=== PATIENT | female | born 1950 | race Caucasian/White ===

== ENCOUNTER 2016-05-19 08:03 | Inpatient (IN) | payer MEDICARE, MEDICAID ==
[2016-05-19 10:56] VITALS: BMI 17.1
--- NOTE | 2016-05-19 13:07 | History and Physical Report ---
History of Present Illnes - History of Present Illness Reason for Visit: gait disturbance History of Present Illness: This is a 65 year old female with an established history of COPD and is chronically oxygen dependent, who presents to the ER with increased c/o shortness of breath/wheezing and failed treatment with nebulizers. She has a productive cough, fever and was noted to have an elevated white count. Patient was felt to be having a bronchitis/pneumonia despite no clear infiltrate on her CXR. Patient was admitted to acute care and started on IV steroids and antibiotics, HFN treatments. Patient developed some weakness due to her illness and it was felt that she would benefit from some PT and OT prior to going home. Was admitted to SNF. - Past Medical History Cardiac: CAD, Hyperlipidemia Pulmonary: COPD ALIGNMENT SPECIALIST: Other (RLS) Gastrointestinal: GERD. denies: Constipation, Inflam bowel disease Heme/Onc: Anemia NOS Psych: Anxiety Musculoskeletal: Chronic low back pain (mid thoracic pain) - Past Surgical History Past Surgical History: Hysterectomy, Other (elbow reconstruction) - Past Family History Mother Family History: Cancer (lung), (84yo) Father Family History: (65yo, complications of alcoholism) Brother 1 Family History: Cancer (lung cancer), (41yo; AIDs) Brother 2 Family History: (41yo AIDs) Sister 1 Family History: Cancer (lung cancer), (47yo) - Past Social History Smoke: # pack years (68), <1 pack per day (68 pk year hx) Occupation: disabled Alcohol: None Drugs: None Lives: With Family (daughter) Domestic Violence: Negative - Health Maintenance Health Maintenance: Cholesterol, Influenza Vaccine, Pneumococcal Vaccine Influenza Vaccine: Current for this Influenza Season Pneumonia Vaccine: Yes Resuscitation Status: Resusciation Status Resuscitation Status Full Code - Unable to Obtain History Unable to Obtain: No Review of Systems - Review of Systems Constitutional: Fever, Chills, Weakness. negative: Sweats Eyes: negative: pain, vision change ENT: Nose Congestion (mild clear). negative: Ear Pain, Ear Discharge, Nose Pain , Nose Discharge, Mouth Pain, Mouth Swelling, Throat Pain Respiratory: Cough (productive of some green phlegm), Shortness of Breath, SOB with Excertion. negative: Hemoptysis, Pleuritic Pain Cardiovascular: Palpitations (with HFN ). negative: Chest Pain, Orthopnea, Paroxysmal Noc. Dyspnea, Light Headedness Gastrointestinal: Constipation. negative: Nausea, Vomiting, Abdominal Pain, Diarrhea, Melena, Hematochezia Genitourinary: negative: Dysuria, Frequency Musculoskeletal: negative: Back Pain Skin: negative: Rash Neurological: Weakness. negative: Numbness, Incoordination, Change in Speech - Medications/Allergies Allergies/Adverse Reactions: Allergies Allergy/AdvReac Type Severity Reaction Status Date / Time No Known Allergies Allergy Verified 05/16/16 20:43 Current Inpatient Medications: Current Inpatient Medications Albuterol/Ipratropium (Duoneb) 3 ml NEB Q4 PRN PRN Reason: Wheezing Alprazolam (Xanax) 0.5 mg PO Q4 PRN PRN Reason: Anxiety Amitriptyline HCl (Elavil) 50 mg PO HS [facility] Aspirin (Ecotrin) 81 mg PO DAILY [facility] Azithromycin (Zithromax) 250 mg PO DAILY [facility] Stop: 05/24/16 08:59 Fluoxetine HCl (Prozac) 10 mg PO BID [facility] Levofloxacin (Levaquin) 500 mg PO D [facility] Montelukast Sodium (Singulair) 10 mg PO DAILY [facility] Pantoprazole Sodium (Protonix) 40 mg PO 0700 [facility] Prednisone (Deltasone) 20 mg PO BID [facility] Stop: 05/22/16 07:00 Prednisone (Deltasone) 10 mg PO BID [facility] Stop: 05/24/16 07:59 Ropinirole HCl (Requip) 2 mg PO TID [facility] Fluticasone/Salmeterol (Advair 250-50 Diskus) each IH BID [facility] Exam - Exam Vital Signs: Vital Signs (72 hours) 05/16/16 05/19/16 05/19/16 22:22 09:46 10:14 Temperature 97.8 F Pulse Rate [ 83 Right] Respiratory 20 Rate Blood Pressure 134/67 Blood Pressure 128/73 [Left Arm] Blood Pressure 134/67 134/67 [Right Arm] O2 Sat by Pulse 97 Oximetry General: Alert, Oriented to Person, Oriented to Place, Oriented to Time, Cooperative, Mild distress HEENT: Atraumatic, PERRLA, Mouth Mucous membr. moist/[place], Nose Mucous membr. moist/[place], Hearing Grossly Normal Neck: Normal Range of Motion, Lymphadenopathy. No: Stridor, Rigidity Carotids: WNL Thyroid: WNL Lungs: Speaks full Sentences, Respiratory Distress, Wheezes (mild), Rhonchi ( few scattered), Prolonged Expiration (mild). No: Rales Cardiovascular: Regular rate, Normal S1, Normal S2, No murmurs Abdomen: Normal bowel sounds, Soft, No tenderness, No masses Integumentary: Normal, [place], Warm, Dry Extremities: No clubbing, No cyanosis, No edema, Normal pulses Neurological: Normal gait, Normal speech, Strength Equal Bilat, Normal tone, Sensation intact, Cranial nerves 3-12 NL, Reflexes 2+ Psych/Mental Status: Mental status NL, Mood NL, Appropriate Affect, Intact Judgment Assessment/Plan - Assessment/Plan (1) Gait disturbance Status: Acute Current Visit: No Assessment: Will start PT and OT. (2) Acute exacerbation of chronic obstructive pulmonary disease (COPD) Status: Acute Current Visit: No Plan: Will start po tapering steroid dose. Continue with HFN treatments. (3) Bronchitis Status: Acute Current Visit: Yes Assessment: Will continue with antibiotics VTE Assessment - RISK FACTOR SCORE VTE RISK FACTOR SCORES: AGE OVER 60 YEARS - RISK VTE MODERATE RISK: SCORE OF 2 (RISK PROXIMAL DVT 2-4%) PROPHYAXIS NEEDED
[2016-05-19] MEDS: IPRATROPIUM/ALBUTEROL SULFATE 3 ML AMPUL.NEB NEB PRN (13:18)
[2016-05-19] MEDS: ALPRAZOLAM 0.5 MG TABLET PO PRN (17:28)
[2016-05-19] MEDS ORDERED: PHARMACY KEY 1 EACH EACH MC ONE (19:28)
[2016-05-19] MEDS: AMITRIPTYLINE HCL 25 MG TABLET PO SCH (19:42)
[2016-05-19] MEDS: predniSONE 20 MG TABLET PO SCH (19:42)
[2016-05-19] MEDS: FLUoxetine HCL 10 MG CAPSULE PO SCH (19:42)
[2016-05-19] MEDS: rOPINIRole HCL 1 MG TABLET PO SCH (19:42)
[2016-05-19] MEDS: FLUTICASONE/SALMETEROL 250-50 INHALER IH SCH (19:43)
[2016-05-19] MEDS ORDERED: PANTOPRAZOLE SODIUM 40 MG TABLET ONE (20:02)
[2016-05-19] MEDS ORDERED: AZITHROMYCIN 250 MG TABLET PO ONE (20:04)
[2016-05-19] MEDS ORDERED: MONTELUKAST SODIUM 10 MG TABLET PO ONE (20:04)
[2016-05-19] MEDS ORDERED: ASPIRIN EC 81 MG TABLET.DR ONE (20:04)
[2016-05-20] MEDS: IPRATROPIUM/ALBUTEROL SULFATE 3 ML AMPUL.NEB NEB PRN ×2 (00:30→17:16)
[2016-05-20] MEDS: PANTOPRAZOLE SODIUM 40 MG TABLET PO SCH (07:21)
[2016-05-20] MEDS: FLUTICASONE/SALMETEROL 250-50 INHALER IH SCH ×2 (08:37→20:00)
[2016-05-20] MEDS: AZITHROMYCIN 250 MG TABLET PO SCH (08:38)
[2016-05-20] MEDS: MONTELUKAST SODIUM 10 MG TABLET PO SCH (08:38)
[2016-05-20] MEDS: predniSONE 20 MG TABLET PO SCH ×2 (08:38→20:01)
[2016-05-20] MEDS: ASPIRIN EC 81 MG TABLET.DR PO SCH (08:38)
[2016-05-20] MEDS: rOPINIRole HCL 1 MG TABLET PO SCH ×3 (08:38→17:47)
[2016-05-20] MEDS: FLUoxetine HCL 10 MG CAPSULE PO SCH ×2 (08:38→20:04)
[2016-05-20] MEDS: ALPRAZOLAM 0.5 MG TABLET PO PRN ×2 (08:43→17:49)
[2016-05-20] MEDS: oxyCODONE HCL 5 MG TABLET PO PRN ×2 (14:00→20:05)
[2016-05-20] MEDS: AMITRIPTYLINE HCL 25 MG TABLET PO SCH (20:01)
[2016-05-21] MEDS: oxyCODONE HCL 5 MG TABLET PO PRN ×3 (04:54→20:45)
[2016-05-21] MEDS: ALPRAZOLAM 0.5 MG TABLET PO PRN ×3 (04:54→20:45)
[2016-05-21] MEDS: IPRATROPIUM/ALBUTEROL SULFATE 3 ML AMPUL.NEB NEB PRN ×2 (05:04→13:33)
[2016-05-21] MEDS: PANTOPRAZOLE SODIUM 40 MG TABLET PO SCH (06:31)
[2016-05-21] MEDS: rOPINIRole HCL 1 MG TABLET PO SCH ×3 (09:16→17:28)
[2016-05-21] MEDS: ASPIRIN EC 81 MG TABLET.DR PO SCH (09:16)
[2016-05-21] MEDS: FLUTICASONE/SALMETEROL 250-50 INHALER IH SCH ×2 (09:16→20:45)
[2016-05-21] MEDS: predniSONE 20 MG TABLET PO SCH ×2 (09:17→20:46)
[2016-05-21] MEDS: MONTELUKAST SODIUM 10 MG TABLET PO SCH (09:17)
[2016-05-21] MEDS: FLUoxetine HCL 10 MG CAPSULE PO SCH ×2 (09:18→20:45)
[2016-05-21] MEDS: AZITHROMYCIN 250 MG TABLET PO SCH (09:18)
[2016-05-21] MEDS: AMITRIPTYLINE HCL 25 MG TABLET PO SCH (20:45)
[2016-05-22] MEDS: oxyCODONE HCL 5 MG TABLET PO PRN ×4 (00:33→20:00)
[2016-05-22] MEDS: ALPRAZOLAM 0.5 MG TABLET PO PRN ×3 (05:06→22:56)
[2016-05-22] MEDS: PANTOPRAZOLE SODIUM 40 MG TABLET PO SCH (05:14)
[2016-05-22] MEDS: IPRATROPIUM/ALBUTEROL SULFATE 3 ML AMPUL.NEB NEB PRN ×2 (05:33→16:10)
[2016-05-22] MEDS: rOPINIRole HCL 1 MG TABLET PO SCH ×3 (09:22→17:56)
[2016-05-22] MEDS: FLUTICASONE/SALMETEROL 250-50 INHALER IH SCH ×2 (09:22→20:18)
[2016-05-22] MEDS: MONTELUKAST SODIUM 10 MG TABLET PO SCH (09:23)
[2016-05-22] MEDS: ASPIRIN EC 81 MG TABLET.DR PO SCH (09:23)
[2016-05-22] MEDS: AZITHROMYCIN 250 MG TABLET PO SCH (09:23)
[2016-05-22] MEDS: FLUoxetine HCL 10 MG CAPSULE PO SCH ×2 (09:26→20:18)
[2016-05-22] MEDS: predniSONE 10 MG TABLET PO SCH ×3 (09:39→20:18)
[2016-05-22] MEDS: AMITRIPTYLINE HCL 25 MG TABLET PO SCH (20:19)
[2016-05-23] MEDS: oxyCODONE HCL 5 MG TABLET PO PRN ×3 (05:39→20:05)
[2016-05-23] MEDS: ALPRAZOLAM 0.5 MG TABLET PO PRN ×2 (05:39→20:05)
[2016-05-23] MEDS: PANTOPRAZOLE SODIUM 40 MG TABLET PO SCH (05:39)
[2016-05-23] MEDS: FLUTICASONE/SALMETEROL 250-50 INHALER IH SCH ×2 (08:07→20:04)
[2016-05-23] MEDS: predniSONE 10 MG TABLET PO SCH ×2 (08:08→20:04)
[2016-05-23] MEDS: FLUoxetine HCL 10 MG CAPSULE PO SCH ×2 (08:09→20:04)
[2016-05-23] MEDS: MONTELUKAST SODIUM 10 MG TABLET PO SCH (08:09)
[2016-05-23] MEDS: ASPIRIN EC 81 MG TABLET.DR PO SCH (08:09)
[2016-05-23] MEDS: rOPINIRole HCL 1 MG TABLET PO SCH ×3 (08:10→17:55)
[2016-05-23] MEDS: AZITHROMYCIN 250 MG TABLET PO SCH (08:10)
[2016-05-23] MEDS: IPRATROPIUM/ALBUTEROL SULFATE 3 ML AMPUL.NEB NEB PRN ×2 (15:27→20:28)
[2016-05-23] MEDS: AMITRIPTYLINE HCL 25 MG TABLET PO SCH (20:04)
[2016-05-24] MEDS: ALPRAZOLAM 0.5 MG TABLET PO PRN ×3 (04:12→19:59)
[2016-05-24] MEDS: oxyCODONE HCL 5 MG TABLET PO PRN ×3 (04:12→20:00)
[2016-05-24] MEDS: PANTOPRAZOLE SODIUM 40 MG TABLET PO SCH (06:00)
[2016-05-24 07:30] LABS: eGFR (African) > 60; eGFR (Non-African) > 60
[2016-05-24] MEDS ORDERED: LEVOFLOXACIN 500 MG TABLET PO ONE (08:30)
[2016-05-24] MEDS: FLUTICASONE/SALMETEROL 250-50 INHALER IH SCH ×2 (08:35→19:59)
[2016-05-24] MEDS: rOPINIRole HCL 1 MG TABLET PO SCH ×3 (08:35→17:42)
[2016-05-24] MEDS: predniSONE 10 MG TABLET PO SCH ×3 (08:35→20:00)
[2016-05-24] MEDS: MONTELUKAST SODIUM 10 MG TABLET PO SCH (08:35)
[2016-05-24] MEDS: ASPIRIN EC 81 MG TABLET.DR PO SCH (08:35)
[2016-05-24] MEDS: FLUoxetine HCL 10 MG CAPSULE PO SCH ×2 (08:35→20:01)
[2016-05-24] MEDS: AZITHROMYCIN 250 MG TABLET PO SCH (08:35)
[2016-05-24] MEDS: IPRATROPIUM/ALBUTEROL SULFATE 3 ML AMPUL.NEB NEB PRN ×2 (10:41→16:17)
[2016-05-24] MEDS: AMITRIPTYLINE HCL 25 MG TABLET PO SCH (19:59)
[2016-05-25] MEDS: IPRATROPIUM/ALBUTEROL SULFATE 3 ML AMPUL.NEB NEB PRN ×3 (01:11→15:29)
[2016-05-25] MEDS: ALPRAZOLAM 0.5 MG TABLET PO PRN ×2 (05:03→08:25)
[2016-05-25] MEDS: oxyCODONE HCL 5 MG TABLET PO PRN ×2 (05:03→10:35)
[2016-05-25] MEDS: PANTOPRAZOLE SODIUM 40 MG TABLET PO SCH (06:15)
[2016-05-25 07:19] LABS: BASOPHILS % 0.1 (0.0-1.5); MEAN CORPUSCULAR HEMOGLOBIN 30.9 pg (28.0-34.0); MONOCYTES # 0.7 # k/uL (0.0-0.9); MONOCYTES % 4.8 % (0.0-11.0); NEUTROPHILS # 12.1 # k/uL (1.4-7.7)
[2016-05-25] MEDS: FLUoxetine HCL 10 MG CAPSULE PO SCH ×2 (08:25→20:52)
[2016-05-25] MEDS: ASPIRIN EC 81 MG TABLET.DR PO SCH (08:25)
[2016-05-25] MEDS: FLUTICASONE/SALMETEROL 250-50 INHALER IH SCH ×2 (08:25→20:51)
[2016-05-25] MEDS: rOPINIRole HCL 1 MG TABLET PO SCH ×3 (08:25→16:47)
[2016-05-25] MEDS: predniSONE 10 MG TABLET PO SCH ×2 (08:26→20:52)
[2016-05-25] MEDS: LEVOFLOXACIN 500 MG TABLET PO SCH (08:26)
[2016-05-25] MEDS: MONTELUKAST SODIUM 10 MG TABLET PO SCH (08:26)
[2016-05-25] MEDS ORDERED: ENOXAPARIN SODIUM 100 MG/ML DISP.SYRIN SQ ONE (08:56)
[2016-05-25] MEDS ORDERED: ENOXAPARIN SODIUM 100 MG/ML DISP.SYRIN SQ SCH (09:00)
--- NOTE | 2016-05-25 10:53 | Inpatient Progress Note ---
Subjective - Required Recertification Statement I anticipate X number of days because-include discharge plan: 7 days - Review of Systems Subjective: Patient states that she has developed some left anterior chest pain which is pleuritic in nature. Patient has had a mild nonproductive cough. Patient denies any fever or chills. Pain is constant, worse with inspiration. Denies any rash. COPD is stable to slightly worse. General: Denies: Chills, Fatigue Pulmonary: Dyspnea, Pleuritic Chest Pain Cardiovascular: Chest Pain (left anterior), Palpitations Gastrointestinal: Denies: Nausea, Vomiting, Abdominal Pain, Diarrhea Genitourinary: Denies: Dysuria, Frequency, Incontinence Neurological: Denies: Weakness, Incoordination Objective - Exam Vitals and I&O: Vital Signs Temp 102.5 F H 05/25/16 09:44 Pulse 135 H 05/25/16 09:44 Resp 24 05/25/16 09:44 BP 100/62 05/25/16 09:44 Pulse Ox 98 05/25/16 09:44 Intake & Output 05/24/16 05/24/16 05/25/16 11:59 23:59 11:59 Intake Total 250 740 120 Balance 250 740 120 Weight 48.081 kg Intake: Oral 250 740 120 Other: Voiding Method Toilet Toilet Toilet General: Alert, Oriented to Person, Oriented to Place, Oriented to Time, Cooperative, Moderate distress HEENT: Atraumatic Neck: Supple, No JVD Lungs: Normal air movement, Speaks full Sentences, Respiratory Distress, Wheezes (bilateral), Rales (course), Rhonchi (course). No: Accessory Muscle Use Cardiovascular: Regular rate, Normal S1, Normal S2, No murmurs, Tachycardia Abdomen: Normal bowel sounds, Soft, No tenderness, No hepatospenomegaly - Results Results: Laboratory Results WBC 14.10 K/ul (4.00-12.00) H 05/25/16 06:35 RBC 3.67 M/ul (3.90-5.20) L 05/25/16 06:35 Hgb 11.3 g/dL (12.0-16.0) L 05/25/16 06:35 Hct 36.6 % (34.5-46.5) 05/25/16 06:35 MCV 99.7 fl (80.0-100.0) 05/25/16 06:35 MCH 30.9 pg (28.0-34.0) 05/25/16 06:35 MCHC 31.0 g/dL (30.0-36.0) 05/25/16 06:35 RDW 12.8 % (11.3-14.3) 05/25/16 06:35 Plt Count 231 K/mm3 (130-400) 05/25/16 06:35 Neut % (Auto) 86.0 % (39.0-79.0) H 05/25/16 06:35 Lymph % (Auto) 7.2 % (16.0-50.0) L 05/25/16 06:35 [place] % (Auto) 4.8 % (0.0-11.0) 05/25/16 06:35 Eos % (Auto) 1.0 % (0.0-6.8) 05/25/16 06:35 Baso % (Auto) 0.1 (0.0-1.5) 05/25/16 06:35 Neut # 12.1 # k/uL (1.4-7.7) H 05/25/16 06:35 Lymph # 1.0 # k/uL (0.6-4.0) 05/25/16 06:35 [place] # 0.7 # k/uL (0.0-0.9) 05/25/16 06:35 Eos # 0.2 # k/uL (0.0-0.6) 05/25/16 06:35 Baso # 0.0 # k/uL (0.0-0.5) 05/25/16 06:35 Reactive Lymphs % 0.9 % (0.0-5.0) 05/25/16 06:35 Reactive Lymphs # 0.1 # k/uL (0.0-0.8) 05/25/16 06:35 Sodium 140 mmol/L (136-145) 05/24/16 06:55 Potassium 4.5 mmol/L (3.5-5.0) 05/24/16 06:55 Chloride 99 mmol/L (98-110) 05/24/16 06:55 Carbon Dioxide > 40 mmol/L (20-32) H 05/24/16 06:55 BUN 20 mg/dL (10-26) 05/24/16 06:55 Creatinine 0.5 mg/dL (0.4-1.5) 05/24/16 06:55 Estimated Creat Clear 102 05/24/16 06:55 Est GFR ( Amer) > 60 (60-) 05/24/16 06:55 Est GFR (Non-Af Amer) > 60 (60-) 05/24/16 06:55 Glucose 105 mg/dL (70-99) H 05/24/16 06:55 Calcium 9.2 mg/dL (8.5-10.5) 05/24/16 06:55 Total Bilirubin 0.2 mg/dL (0.2-1.2) 05/24/16 06:55 AST 18 U/L (0-41) 05/24/16 06:55 ALT 21 U/L (0-45) 05/24/16 06:55 Alkaline Phosphatase 76 U/L (46-116) 05/24/16 06:55 Troponin I < 0.03 ng/mL (0.00-0.06) 05/25/16 06:35 Total Protein 6.8 g/dL (6.0-8.5) 05/24/16 06:55 Albumin 3.9 g/dL (3.0-5.5) 05/24/16 06:55 Assessment/Plan - Assessment/Plan (1) Gait disturbance Status: Acute Current Visit: No Assessment: slowly improving (2) Pneumonia Status: Acute Current Visit: No Qualifiers: Pneumonia type: due to unspecified organism Laterality: left Lung location: lower lobe of lung Qualified Code(s): J18.9 - Pneumonia, unspecified organism Assessment: Patient has a new infiltrate to the left lingular area. Will start antibiotics , continue with steroids and HFN. Will try NSAID and warm compress to the anterior chest area.
[2016-05-25] MEDS: NAPROXEN 250 MG TABLET PO PRN (11:25)
[2016-05-25] MEDS: DOXYCYCLINE MONOHYDRATE 100 MG CAPSULE PO SCH ×2 (11:25→20:53)
[2016-05-25] MEDS: ACETAMINOPHEN 325 MG TABLET PO PRN ×2 (11:26→22:22)
--- NOTE | 2016-05-25 13:36 | Diagnostic Imaging Report ---
[facility] [address] [place] [facility].[address] [address] Report Submission Date: May 25, 2016 9:29:59 AM PLANT ACCOUNTANT Patient Study Name: ROSSY TODD Date: May 25, 2016 9:16:06 AM PLANT ACCOUNTANT Modality Type: CR Gender: F Description: CHEST : 54 Institution: [facility] Physician [place]/MED SURG EXAMINATION: Chest, two views. HISTORY: Left-sided chest pain. FINDINGS: Comparison is made to exam dated 05/17/2016. The heart size is normal. There is atherosclerosis of the aorta. Wire sternal sutures are in place. There is a approximately 3.6 cm rounded consolidation now present within the lingular segment left upper lobe obscuring portion of the left heart border, new since prior exam. There is blunting the costophrenic angles suggesting pleural thickening. IMPRESSION: 1. New consolidative opacity in the lingular segment of the left upper lobe since 05/17/2016. Radiographic follow-up to resolution recommended. 2. Emphysematous change. Electronically signed on May 25, 2016 9:29:59 AM PLANT ACCOUNTANT by: Cesar Osullivan [facility]
[2016-05-25] MEDS: oxyCODONE HCL 5 MG TABLET PO SCH ×3 (13:40→20:53)
[2016-05-25] MEDS: AMITRIPTYLINE HCL 25 MG TABLET PO SCH (20:51)
[2016-05-26] MEDS: oxyCODONE HCL 5 MG TABLET PO SCH ×4 (01:01→12:46)
[2016-05-26] MEDS: ALPRAZOLAM 0.5 MG TABLET PO PRN (01:01)
[2016-05-26] MEDS: PANTOPRAZOLE SODIUM 40 MG TABLET PO SCH (06:20)
[2016-05-26] MEDS: NAPROXEN 250 MG TABLET PO PRN (06:38)
[2016-05-26] MEDS ORDERED: ENOXAPARIN SODIUM 100 MG/ML DISP.SYRIN SQ SCH (09:00)
[2016-05-26] MEDS: rOPINIRole HCL 1 MG TABLET PO SCH ×2 (09:04→12:47)
[2016-05-26] MEDS: ASPIRIN EC 81 MG TABLET.DR PO SCH (09:05)
[2016-05-26] MEDS: FLUoxetine HCL 10 MG CAPSULE PO SCH (09:05)
[2016-05-26] MEDS: predniSONE 10 MG TABLET PO SCH (09:05)
[2016-05-26] MEDS: FLUTICASONE/SALMETEROL 250-50 INHALER IH SCH (09:05)
[2016-05-26] MEDS: MONTELUKAST SODIUM 10 MG TABLET PO SCH (09:05)
[2016-05-26] MEDS: LEVOFLOXACIN 500 MG TABLET PO SCH (09:06)
[2016-05-26] MEDS: DOXYCYCLINE MONOHYDRATE 100 MG CAPSULE PO SCH (09:06)
[2016-05-26] MEDS ORDERED: ENOXAPARIN SODIUM 30 MG/0.3 ML DISP.SYRIN SQ ONE (09:07)
--- NOTE | 2016-05-26 10:32 | Discharge Summary ---
Discharge Summary - Discharge Sumary History of Present Illness: This is a 65 year old female with an established history of COPD and is chronically oxygen dependent, who presents to the ER with increased c/o shortness of breath/wheezing and failed treatment with nebulizers. She has a productive cough, fever and was noted to have an elevated white count. Patient was felt to be having a bronchitis/pneumonia despite no clear infiltrate on her CXR. Patient was admitted to acute care and started on IV steroids and antibiotics, HFN treatments. Patient developed some weakness due to her illness and it was felt that she would benefit from some PT and OT prior to going home. Was admitted to SNF. Condition at Discharge: Stable Home Medications: Ambulatory Orders Medication Instructions Recorded Fluoxetine HCl 40 mg PO 2 capsules daily av 11/03/15 Aspirin EC [Ecotrin] 81 mg PO DAILY tablet. 05/19/16 Montelukast Sodium [Singulair] 10 mg PO DAILY tablet 05/19/16 Acetaminophen [Tylenol] 650 mg PO Q6H PRN #0 tablet 05/26/16 Amitriptyline HCl [Elavil] 50 mg PO HS tablet 05/26/16 Doxycycline Monohydrate 100 mg PO BID #20 capsule 05/26/16 [Vibramycin] oxyCODONE HCL [Percolone] 5 mg PO Q4 PRN #180 tablet 05/26/16 predniSONE [Deltasone] 5 mg PO BID tablet 05/26/16 Consultations this Visit: None Allergies/Adverse Reactions: Allergies Allergy/AdvReac Type Severity Reaction Status Date / Time No Known Allergies Allergy Verified 05/16/16 20:43 Discharge Summary: patient COPD and pneumonia. He didn't appear to improve during her skilled therapy. Patient was started on physical and occupational therapy. Patient did participate well with the therapy regimen. At the time of dismissal was felt that patient could benefit from further skilled therapy inpatient. The patient insisted on going home. Patient was subsequently discharged prior then what was advised. patient felt that she can manage at home adequately. - Final Diagnosis (1) Gait disturbance Problems: improve,patient will be continued on home health physical and occupational therapy. (2) Pneumonia Problems: improved (3) Chronic low back pain Problems: stable (4) COPD (chronic obstructive pulmonary disease) Problems: stable
[2016-05-26] MEDS: IPRATROPIUM/ALBUTEROL SULFATE 3 ML AMPUL.NEB NEB PRN (10:58)
[2016-05-26 13:50] VITALS: BP 88/44
== END 2016-05-26 13:40 | disposition home or self-care (01) | DRG 192 ==
LOC: SOUTH 08:03
PROVIDERS: ADMIT Family Medicine; ATTEND Family Medicine
DX: J44.1 Chronic obstructive pulmonary disease with (acute) exacerbation (principal); J20.9 Acute bronchitis, unspecified; E78.5 Hyperlipidemia, unspecified; I25.10 Atherosclerotic heart disease of native coronary artery without angina pectoris; K21.9 Gastro-esophageal reflux disease without esophagitis; D64.9 Anemia, unspecified; G25.81 Restless legs syndrome; F41.9 Anxiety disorder, unspecified; M54.5 Low back pain; F17.210 Nicotine dependence, cigarettes, uncomplicated; R26.9 Unspecified abnormalities of gait and mobility
CPT/HCPCS: 36415; 71020; 80053; 84484; 85025; 85379; J1650; J7512

== ENCOUNTER 2016-08-02 15:01 | Outpatient (CLI) | payer MEDICARE, MEDICAID | END 2016-08-02 15:02 | LOC: LAB 15:01 | PROVIDERS: ATTEND Family Medicine | DX: R41.3 Other amnesia (principal) | CPT/HCPCS: 36415; 82607; 82746; 84443 ==

== ENCOUNTER 2016-09-29 14:19 | Outpatient (CLI) | payer MEDICARE, MEDICAID ==
[2016-09-29 14:30] LABS: BASOPHILS % 0.4 (0.0-1.5); EOSINOPHILS % 1.5 % (0.0-6.8); MEAN CORPUSCULAR HEMOGLOBIN 30.8 pg (28.0-34.0); MEAN CORPUSCULAR VOLUME 98.1 fl (80.0-100.0); MONOCYTES % 4.6 % (0.0-11.0); NEUTROPHILS # 5.4 # k/uL (1.4-7.7)
[2016-09-29 15:01] LABS: eGFR (African) > 60; eGFR (Non-African) > 60
== END 2016-09-29 14:20 ==
LOC: LAB 14:19
PROVIDERS: ATTEND Physician Assistant
DX: R53.83 Other fatigue (principal)
CPT/HCPCS: 36415; 80053; 85025

== ENCOUNTER 2016-10-31 11:57 | Emergency (ER) | payer MEDICARE, MEDICAID ==
[2016-10-31] MEDS ORDERED: hydrOXYzine HCL 50 MG/ML VIAL IM ONE (12:22)
--- NOTE | 2016-10-31 12:25 | ED Physician Documentation ---
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 denies: abdominal pain, problems urinating, nausea MS/SKIN/LYMPH: ankle swelling - PAST HX Asthma: frequent attacks Lung Disease: COPD Surgeries/Procedures: hysterectomy Allergies/Adverse Reactions: Allergies Allergy/AdvReac Type Severity Reaction Status Date / Time No Known Allergies Allergy Verified 10/31/16 12:08 Home Medications: Ambulatory Orders Medication Instructions Recorded Fluoxetine HCl 40 mg PO 2 capsules daily av 11/03/15 Aspirin EC [Ecotrin] 81 mg PO DAILY tablet. 05/19/16 Montelukast Sodium [Singulair] 10 mg PO DAILY tablet 05/19/16 Acetaminophen [Tylenol] 650 mg PO Q6H PRN #0 tablet 05/26/16 Amitriptyline HCl [Elavil] 50 mg PO HS tablet 05/26/16 oxyCODONE HCL [Percolone] 5 mg PO Q4 PRN #180 tablet 05/26/16 - SOCIAL HX Smoking History: less than 1 pack/day Alcohol Use: none Drug Use: none - FAMILY HX Family History: emphysema - VITAL SIGNS Vital Signs: Vital Signs Temp Pulse Resp BP Pulse Ox 88/44 05/26/16 10:31 - REVIEWED ASSESSMENTS Nursing Assessment Reviewed: Yes Vitals Reviewed: Yes ED Results Lab/Radiology - Orders Orders: ED Orders Category Date Time Status hydrOXYzine HCL [Vistaril] Med 10/31/16 12:18 Ordered 50 mg IM NOW PRN Asthma Physical Exam - EXAM General Appearance: mild distress EENT: eye inspection normal Neck: nml inspection Respiratory: speaks full sentences, respiratory distress (very mild) CVS: reg rate & rhythm, heart sounds normal, occasional extrasystoles Skin: color nml, no rash. No: cyanosis, diaphoresis, pallor, ecchymosis Extremities: non-tender, normal range of motion, no evidence of injury Neuro/Psych: oriented x3, mood/affect nml Discharge Clincal Impression: exab asthme hx copd Referrals: Rudy Salcedo MD [Primary Care Provider] - 2 Days Home Medications: Ambulatory Orders Fluoxetine HCl 40 mg PO 2 capsules daily av 11/03/15 Aspirin EC [Ecotrin] 81 mg PO DAILY tablet. 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
[2016-10-31] MEDS: hydrOXYzine HCL 50 MG/ML VIAL IM PRN (12:27)
[2016-10-31 12:34] VITALS: BP 145/85
== END 2016-10-31 12:32 | disposition home or self-care (01) ==
LOC: ED 11:57
DX: J45.998 Other asthma (principal); J44.9 Chronic obstructive pulmonary disease, unspecified
CPT/HCPCS: J3410 ×2; 96372; 99283

== ENCOUNTER 2016-11-19 19:08 | Emergency (ER) | payer MEDICARE, MEDICAID ==
[2016-11-19] MEDS ORDERED: BUDESONIDE 0.5MG/2ML AMPUL.NEB NEB ONE (19:11)
[2016-11-19] MEDS: BUDESONIDE 0.5MG/2ML AMPUL.NEB NEB SCH (19:14)
[2016-11-19] MEDS: methylPREDNISolone SOD SUCC 125 MG/2 ML VIAL IVP ONE (19:41)
[2016-11-19 20:04] LABS: MEAN CORPUSCULAR HEMOGLOBIN 31.2 pg (28.0-34.0); MEAN CORPUSCULAR VOLUME 100.3 fl (80.0-100.0)
[2016-11-19] MEDS: 0.9 % SODIUM CHLORIDE 500 ML IV ONE (20:05)
[2016-11-19 20:14] LABS: eGFR (African) > 60; eGFR (Non-African) > 60
--- NOTE | 2016-11-19 21:29 | Diagnostic Imaging Report ---
LEONARDO LEGER~ [facility] [address] [facility].[address] [address] ~ ~ ~ ~ Report Submission Date: Nov 19, 2016 7:51:05 PM CDT Patient ~ Study Name: ROSSY TODD ~ Date: Nov 19, 2016 7:33:03 PM CDT ~ Modality Type: CR Gender: F ~ Description: CHEST : 54 ~ Institution: [facility] Physician: LEONARDO LEGER ~ ~ ~ ~ Chest AP single view Clinical history: Dyspnea and chest pain Severe pulmonary emphysema with flattening of both hemidiaphragms. Normal heart shadow. Atherosclerotic thoracic aorta. No definite acute infiltrates or pleural effusion. No pneumothorax . Impression: Pulmonary emphysema without acute infiltrate or pleural effusion ~ Electronically signed on Nov 19, 2016 7:51:05 PM CDT by: Rudy CHAN
[2016-11-20 01:26] VITALS: BP 121/59
--- NOTE | 2016-11-20 07:47 | ED Physician Documentation ---
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 Onset: days ago (2) Duration: continues in ED Initiating Event: other (worsening of copd) Severity: moderate Exacerbated By: exertion Associated Symptoms: denies: chills, fever, sweating, chest pain, chest discomfort, bloody cough, productive cough, heart racing, leg pain, calf pain, dizziness, light-headedness, anxiety, hands tingling, face tingling, muscle spasms Further Comments: no - ROS CONST: no problems EYES/ENT: none GI/: none NEURO/PSYCH: denies: headache MS/SKIN/LYMPH: denies: neck pain, muscle aches, rash, swollen glands, back pain - PAST HX Lung Disease: COPD, other (pain, depression, gerd) Cardiac Disease: none PE Risk Factors: none Surgeries/Procedures: hysterectomy Immunizations: referred to PCP Allergies/Adverse Reactions: Allergies Allergy/AdvReac Type Severity Reaction Status Date / Time No Known Allergies Allergy Verified 10/31/16 12:08 Home Medications: Ambulatory Orders Medication Instructions Recorded Fluoxetine HCl 40 mg PO 2 capsules daily av 11/03/15 Aspirin EC [Ecotrin] 81 mg PO DAILY tablet. 05/19/16 Montelukast Sodium [Singulair] 10 mg PO DAILY tablet 05/19/16 Amitriptyline HCl [Elavil] 50 mg PO HS tablet 05/26/16 - SOCIAL HX Smoking History: less than 1 pack/day Alcohol Use: none Drug Use: none - FAMILY HX Family History: no significant history - VITAL SIGNS Vital Signs: Vital Signs Temp Pulse Resp BP Pulse Ox 98.8 F 100 H 20 121/59 97 11/19/16 19:08 11/19/16 21:15 11/19/16 21:15 11/19/16 21:15 11/19/16 21:15 - REVIEWED ASSESSMENTS Nursing Assessment Reviewed: Yes Vitals Reviewed: Yes Progress - Results/Orders Results/Orders: cbc, cmp, cxr, abg ordered - Progress Progress: pt. given 1 liter ns, 125 mg solu medrol ivp and pulmicort tx 0.5 mg in er, resolution of resp. distress, calm, abg excellent Critical Care Note - Critical Care Note Total Time (mins): 0 ED Results Lab/Radiology - Lab Results Lab Results: Lab Results 11/19/16 11/19/16 11/19/16 19:50 19:49 19:49 WBC 7.70 K/ul K/ul (4.00-12.00) RBC 3.76 M/ul L M/ul (3.90-5.20) Hgb 11.8 g/dL L g/dL (12.0-16.0) Hct 37.8 % % (34.5-46.5) MCV 100.3 fl H fl (80.0-100.0) MCH 31.2 pg pg (28.0-34.0) MCHC 31.1 g/dL g/dL (30.0-36.0) RDW 12.4 % % (11.3-14.3) Plt Count 168 K/mm3 K/mm3 (130-400) PT 9.8 Seconds Seconds (9.4-11.6) INR 0.93 (0.9-1.2) APTT 22.4 Seconds L Seconds (24.5-32.8) Sodium 147 mmol/L H mmol/L (136-145) Potassium 3.8 mmol/L mmol/L (3.5-5.0) Chloride 104 mmol/L mmol/L (98-110) Carbon Dioxide 38 mmol/L H mmol/L (20-32) BUN 24 mg/dL mg/dL (10-26) Creatinine 0.6 mg/dL mg/dL (0.4-1.5) Estimated Creat Clear 79 Est GFR ( Amer) > 60 (60 - ) Est GFR (Non-Af Amer) > 60 (60 - ) Glucose 147 mg/dL H mg/dL (70-99) Calcium 9.9 mg/dL mg/dL (8.5-10.5) Total Bilirubin 0.5 mg/dL mg/dL (0.2-1.2) AST 23 U/L U/L (0-41) ALT 28 U/L U/L (0-45) Alkaline Phosphatase 73 U/L U/L (46-116) Total Protein 7.0 g/dL g/dL (6.0-8.5) Albumin 4.3 g/dL g/dL (3.0-5.5) - Radiology Radiology Impressions: cxr copd, no infiltrates - Orders Orders: ED Orders Category Date Time Status Place IV Lock 1T Care 11/19/16 19:24 Active CHEST 1 VIEW [RAD] Routine Exams 11/19/16 Completed ARTERIAL BLOOD GAS Stat Lab 11/19/16 19:31 Ordered CBC/PLATELET/DIFF Routine Lab 11/19/16 19:50 Completed CMP Routine Lab 11/19/16 19:49 Completed PT-INR Routine Lab 11/19/16 19:49 Completed PTT Routine Lab 11/19/16 19:49 Completed 0.9 % Sodium Chloride [Normal Saline] 500 ml Med 11/19/16 19:29 Discontinued IV NOW Budesonide [Pulmicort] Med 11/19/16 19:11 Discontinued 0.5 mg NEB .STK-MED ONE Budesonide [Pulmicort] Med 11/19/16 21:00 Discontinued 0.5 mg NEB BID methylPREDNISolone SOD SUCC [Solu-MEDROL] Med 11/19/16 19:27 Discontinued 125 mg IVP NOW ONE Oxygen Daily Oxygen 11/19/16 19:45 Ordered Dyspnea Physical Exam - EXAM General Appearance: moderate distress (gasping breaths but 96-97% O2 on 2 liters nc), hyperventilating EENT: eye inspection normal, ENT inspection normal, pharynx normal, no signs of dehydration, BAILEE, no nystagmus, TM's nml Neck: nml inspection Respiratory: breath sounds nml, respiratory distress, accessory muscle use. No : decreased air movement, wheezes, rales, rhonchi, stridor CVS: reg. rate & rhythm, no murmur, no gallop, no friction rub, pulses full, pulses equal Abdomen: non-tender, no organomegaly, no distention, no ascites Skin: color nml, no rash. No: diaphoresis, pallor, skin rash Extremities: non-tender, normal range of motion, no evidence of injury, no edema Neuro/Psych: oriented x3, CN's nml as tested, motor nml, sensation nml, other ( anxious) Discharge Clincal Impression: Anxiety COPD (chronic obstructive pulmonary disease) Qualifiers: COPD type: COPD with acute exacerbation Qualified Code(s): J44.1 - Chronic obstructive pulmonary disease with (acute) exacerbation Referrals: Rudy Salcedo MD [Primary Care Provider] - 2 Days Home Medications: Ambulatory Orders Fluoxetine HCl 40 mg PO 2 capsules daily av 11/03/15 Aspirin EC [Ecotrin] 81 mg PO DAILY tablet. 05/19/16 Montelukast Sodium [Singulair] 10 mg PO DAILY tablet 05/19/16 Amitriptyline HCl [Elavil] 50 mg PO HS tablet 05/26/16 Comments: discharged with script for prednisone taper Condition: Stable Disposition: HOME, SELF-CARE Decision to Admit: NO Decision Time: 21:00
[2016-11-22 08:33] LABS: ABG BASE EXCESS 10.6 (-2 - +2); ABG PH 7.41 (7.35-7.45)
== END 2016-11-19 21:00 | disposition home or self-care (01) ==
LOC: ED 19:08
DX: F41.9 Anxiety disorder, unspecified (principal); J44.1 Chronic obstructive pulmonary disease with (acute) exacerbation
CPT/HCPCS: 71010; 80053; 85025; 85610; 85730; J2930; J7060; J7626; 36600; 82803; 96361; 96374; 99283; S1016

== ENCOUNTER 2016-11-23 11:51 | Emergency (ER) | payer MEDICARE, MEDICAID ==
[2016-11-23] MEDS ORDERED: ALBUTEROL SULFATE 2.5 MG/3 ML AMPUL.NEB NEB ONE (12:03)
[2016-11-23] MEDS: ALBUTEROL SULFATE 2.5 MG/3 ML AMPUL.NEB NEB ONE (12:15)
[2016-11-23 12:50] LABS: BASOPHILS % 0.6 (0.0-1.5); EOSINOPHILS % 3.3 % (0.0-6.8); MEAN CORPUSCULAR HEMOGLOBIN 32.2 pg (28.0-34.0); MONOCYTES % 4.9 % (0.0-11.0); NEUTROPHILS # 4.6 # k/uL (1.4-7.7)
--- NOTE | 2016-11-23 13:02 | Diagnostic Imaging Report ---
COLT BERGERON [facility] [address] [facility] [address] [address] Report Submission Date: Nov 23, 2016 12:59:12 PM CDT Patient Study Name: ROSSY TODD Date: Nov 23, 2016 12:43:49 PM CDT Modality Type: CR Gender: F Description: CHEST : 54 Institution: [facility] Physician: COLT BERGERON Examination: Portable chest History: Short of Breath Comparison exam: 19 November 2016 Findings: Single view of the chest demonstrates a normal cardiac and mediastinal silhouette. Lung arthur without focal infiltrate. No effusion. Hyper inflated lungs. Osseous structures are appropriate for age. Impression: Stable chest. No acute process. Electronically signed on Nov 23, 2016 12:59:12 PM CDT by: Fredy CHAN
[2016-11-23 13:06] LABS: eGFR (African) > 60; eGFR (Non-African) > 60
[2016-11-23 14:04] VITALS: BP 105/72
--- NOTE | 2016-11-23 19:27 | ED Physician Documentation ---
Dyspnea - HISTORIAN Historian: patient - HPI Stated Complaint: shortness of breath Chief Complaint: Dyspnea Additional Information: pt ret exab sob has been to jack and car w/o ac. there is ac in house but has two dogs. she also cont to smoke"less than i ppd". she came in on 4lpm port o2 . took her off o2 w/94 put on 2lpm raised to 98-cont about that range pt resp is labored and she still feels sob Onset: days ago (several days - seen here several times past sev days-remains non compliant when goes home. did not bring meds and dont remember which ones she is taking) Duration: continues in ED, better Initiating Event: out of meds (her allopurinol), other (meds and et al non compliant) Severity: mild, moderate Exacerbated By: change in position, exertion Associated Symptoms: chest discomfort, productive cough, dizziness, light- headedness, anxiety - ROS CONST: weakness GI/: none - PAST HX Lung Disease: asthma, COPD, other (gout) Allergies/Adverse Reactions: Allergies Allergy/AdvReac Type Severity Reaction Status Date / Time No Known Allergies Allergy Verified 11/23/16 12:44 Home Medications: Ambulatory Orders Medication Instructions Recorded Fluoxetine HCl 40 mg PO 2 capsules daily av 11/03/15 Aspirin EC [Ecotrin] 81 mg PO DAILY tablet. 05/19/16 Montelukast Sodium [Singulair] 10 mg PO DAILY tablet 05/19/16 Amitriptyline HCl [Elavil] 50 mg PO HS tablet 05/26/16 - SOCIAL HX Smoking History: less than 1 pack/day Alcohol Use: none Drug Use: none - FAMILY HX Family History: no significant history - VITAL SIGNS Vital Signs: Vital Signs Temp Pulse Resp BP Pulse Ox 104 H 22 124/76 100 11/23/16 12:11 11/23/16 11:55 11/23/16 11:55 11/23/16 12:12 - REVIEWED ASSESSMENTS Nursing Assessment Reviewed: Yes Vitals Reviewed: Yes ED Results Lab/Radiology - Radiology Radiology Impressions: cxr=no acute but severe copd - Orders Orders: ED Orders Category Date Time Status Continuous EKG monitoring Q1H Care 11/23/16 12:11 Active Continuous Pulse Oximetry Q1H Care 11/23/16 12:[address] IV Lock 1T Care 11/23/16 12:11 Active CHEST 1 VIEW [RAD] Stat Exams 11/23/16 Ordered CBC/PLATELET/DIFF Routine Lab 11/23/16 Ordered CMP Routine Lab 11/23/16 Ordered Albuterol Sulfate [Ventolin] Med 11/23/16 12:03 Discontinued 2.5 mg NEB .STK-MED ONE Oxygen Daily Oxygen 11/23/16 12:15 Ordered EKG WITH COMPARISON Stat Ther 11/23/16 Ordered Dyspnea Physical Exam - EXAM General Appearance: mild distress, moderate distress EENT: eye inspection normal Neck: nml inspection Respiratory: prolonged expirations, wheezes, rales, rhonchi. No: breath sounds nml CVS: reg. rate & rhythm, no murmur Abdomen: non-tender, no distention Skin: color nml, no rash. No: cyanosis, diaphoresis, pallor, ecchymosis Extremities: non-tender, normal range of motion Neuro/Psych: oriented x3, motor nml, sensation nml, mood/affect nml Discharge Clincal Impression: Acute exacerbation of COPD with asthma, medication activity and cigarette non co, mpliance Referrals: Rudy Salcedo MD [Primary Care Provider] - 2 Days Additional Instructions: disc compliance and rx for meds Home Medications: Ambulatory Orders Fluoxetine HCl 40 mg PO 2 capsules daily av 11/03/15 Aspirin EC [Ecotrin] 81 mg PO DAILY tablet. 05/19/16 Montelukast Sodium [Singulair] 10 mg PO DAILY tablet 05/19/16 Amitriptyline HCl [Elavil] 50 mg PO HS tablet 05/26/16 Condition: Fair Decision to Admit: NO Decision Time: 13:47
== END 2016-11-23 13:55 ==
LOC: ED 11:51
DX: J44.9 Chronic obstructive pulmonary disease, unspecified (principal); J45.909 Unspecified asthma, uncomplicated
CPT/HCPCS: 36415; 71010; 80051; 80053; 85025; 99283; S1016

== ENCOUNTER 2016-12-19 13:53 | Emergency (ER) | payer MEDICARE, MEDICAID ==
[2016-12-19] MEDS ORDERED: IPRATROPIUM/ALBUTEROL SULFATE 3 ML AMPUL.NEB NEB ONE (13:59)
[2016-12-19] MEDS ORDERED: LORazepam 2 MG/ML VIAL ONE (14:15)
[2016-12-19] MEDS ORDERED: methylPREDNISolone SOD SUCC 125 MG/2 ML VIAL ONE (14:18)
[2016-12-19] MEDS: LORazepam 2 MG/ML VIAL IVP ONE (14:19)
--- NOTE | 2016-12-19 14:26 | ED Physician Documentation ---
Dyspnea - HISTORIAN Historian: patient - HPI Chief Complaint: Dyspnea Additional Information: ac exab ch copd w/sob wheeze-recently on zo-pack and red dose pred out of xanax for 2 days-on 3 lpm home o2 Onset: other (recurrent exab=-still smokes-now on chantex) Duration: continues in ED, worse Initiating Event: upper respiratory illness, exercise, exposure to smoke Severity: moderate Exacerbated By: change in position, exertion, coughing Associated Symptoms: chest discomfort, productive cough Further Comments: yes (many prev similar ed visits) - ROS CONST: no problems EYES/ENT: none GI/: other (freq urination since on chantex) MS/SKIN/LYMPH: muscle aches, back pain - PAST HX Lung Disease: asthma, COPD, other ( gout djd chf gerd hep c anxiety) Surgeries/Procedures: hysterectomy Allergies/Adverse Reactions: Allergies Allergy/AdvReac Type Severity Reaction Status Date / Time No Known Allergies Allergy Verified 12/19/16 14:13 Home Medications: Ambulatory Orders Medication Instructions Recorded Fluoxetine HCl 40 mg PO 2 capsules daily av 11/03/15 Aspirin EC [Ecotrin] 81 mg PO DAILY tablet. 05/19/16 Montelukast Sodium [Singulair] 10 mg PO DAILY tablet 05/19/16 Amitriptyline HCl [Elavil] 50 mg PO HS tablet 05/26/16 - SOCIAL HX Smoking History: cigarettes, greater than 1 pack/day Alcohol Use: none Drug Use: none - FAMILY HX Family History: no significant history - VITAL SIGNS Vital Signs: Vital Signs Temp Pulse Resp BP Pulse Ox 98.1 F 106 H 19 148/67 97 12/19/16 13:53 12/19/16 13:53 12/19/16 13:53 12/19/16 13:53 12/19/16 13:53 - REVIEWED ASSESSMENTS Nursing Assessment Reviewed: Yes Vitals Reviewed: Yes ED Results Lab/Radiology - Radiology Radiology Impressions: COPD SEEN CXR - Orders Orders: ED Orders Category Date Time Status CHEST P.A.&LAT 2 VIEWS [RAD] Stat Exams 12/19/16 Ordered CBC/PLATELET/DIFF Routine Lab 12/19/16 Ordered CMP Routine Lab 12/19/16 Ordered Ipratropium/Albuterol Sulfate [Duoneb] Med 12/19/16 13:59 Discontinued 3 ml NEB .STK-MED ONE Ipratropium/Albuterol Sulfate [Duoneb] Med 12/19/16 14:14 Once 3 ml NEB NOW ONE LORazepam [Ativan] Med 12/19/16 14:14 Once 1 mg IVP NOW ONE LORazepam [Ativan] Med 12/19/16 14:15 Discontinued 2 mg .ROUTE .STK-MED ONE methylPREDNISolone SOD SUCC [Solu-MEDROL] Med 12/19/16 14:18 Discontinued 125 mg .ROUTE .STK-MED ONE methylPREDNISolone SOD SUCC [Solu-MEDROL] 125 mg Med 12/19/16 14:17 Ordered 0.9 % Sodium Chloride [Sodium Chloride] 100 ml IV NOW Oxygen Daily Oxygen 12/19/16 14:30 Ordered EKG WITH COMPARISON Stat Ther 12/19/16 Ordered Dyspnea Physical Exam - EXAM General Appearance: moderate distress EENT: eye inspection normal, ENT inspection normal Neck: nml inspection Respiratory: respiratory distress, prolonged expirations, accessory muscle use, decreased air movement, wheezes, rales, rhonchi. No: no resp. distress, breath sounds nml, speaks full sentences CVS: reg. rate & rhythm, no gallop Abdomen: non-tender Skin: color nml, no rash. No: cyanosis, diaphoresis, pallor Extremities: non-tender, normal range of motion Neuro/Psych: oriented x3, motor nml, sensation nml, mood/affect nml Discharge Clincal Impression: acute exaberation copd, nicotine abuse Referrals: Rudy Salcedo MD [Primary Care Provider] - 2 Days Home Medications: Ambulatory Orders Fluoxetine HCl 40 mg PO 2 capsules daily av 11/03/15 Aspirin EC [Ecotrin] 81 mg PO DAILY tablet. 05/19/16 Montelukast Sodium [Singulair] 10 mg PO DAILY tablet 05/19/16 Amitriptyline HCl [Elavil] 50 mg PO HS tablet 05/26/16 Condition: Fair Disposition: 01 HOME, SELF-CARE Decision to Admit: NO Decision Time: 15:47
[2016-12-19] MEDS: IPRATROPIUM/ALBUTEROL SULFATE 3 ML AMPUL.NEB NEB ONE ×2 (14:29→14:48)
[2016-12-19 14:42] LABS: eGFR (African) > 60; eGFR (Non-African) > 60
[2016-12-19 14:53] LABS: BASOPHILS % 0.6 (0.0-1.5); EOSINOPHILS % 1.5 % (0.0-6.8); MEAN CORPUSCULAR VOLUME 100.1 fl (80.0-100.0); MONOCYTES % 1.7 % (0.0-11.0); NEUTROPHILS # 6.1 # k/uL (1.4-7.7)
[2016-12-19 15:55] VITALS: BP 143/68
--- NOTE | 2016-12-19 18:09 | Diagnostic Imaging Report ---
COLT BERGERON~ [facility] [address] [facility].[address] [address] ~ ~ ~ ~ Report Submission Date: Dec 19, 2016 2:58:18 PM CDT Patient ~ Study Name: ROSSY TODD ~ Date: Dec 19, 2016 2:33:44 PM CDT ~ Modality Type: CR Gender: F ~ Description: CHEST : 54 ~ Institution: [facility] Physician: COLT BERGERON ~ ~ ~ ~ Chest 2 views History: Dyspnea and COPD Findings: Severe emphysema healed bilateral rib fractures, and stable severe mid thoracic compression deformity are observed as identified on the exam obtained 6 months ago. Lingular infiltrate has resolved. There is no acute infiltrate or pleural effusion. Heart size is normal. Impression: Severe emphysema and old fractures. ~ Electronically signed on Dec 19, 2016 2:58:18 PM CDT by: Lenin CHAN
== END 2016-12-19 15:48 | disposition home or self-care (01) ==
LOC: ED 13:53
DX: J44.1 Chronic obstructive pulmonary disease with (acute) exacerbation (principal); Z72.0 Tobacco use
CPT/HCPCS: 71020; 80053; 85025; J2060; J2930; 96374; 96375; 99283; S1016

== ENCOUNTER 2017-01-13 04:03 | Emergency (ER) | payer MEDICARE, OTHER ==
[2017-01-13 04:37] LABS: BASOPHILS % 0.5 (0.0-1.5); EOSINOPHILS % 0.4 % (0.0-6.8); MEAN CORPUSCULAR HEMOGLOBIN 31.3 pg (28.0-34.0); MEAN CORPUSCULAR VOLUME 98.2 fl (80.0-100.0); MONOCYTES % 1.6 % (0.0-11.0)
[2017-01-13 04:50] LABS: eGFR (African) > 60; eGFR (Non-African) > 60
[2017-01-13] MEDS ORDERED: methylPREDNISolone SOD SUCC 125 MG/2 ML VIAL IVP ONE (05:22)
--- NOTE | 2017-01-13 05:25 | ED Physician Documentation ---
Dyspnea - HISTORIAN Historian: patient - HPI Stated Complaint: SOA Chief Complaint: Wheezing Onset: days ago Duration: worse Initiating Event: upper respiratory illness Severity: moderate Exacerbated By: exertion, coughing Associated Symptoms: productive cough Further Comments: yes (66 year old female patient presents with complaint of dyspnea and cough. Was started on prednisone 20mg, [address] Salcedo, did not pickling solution maker her z-pack.) - ROS CONST: recent illness EYES/ENT: none GI/: none NEURO/PSYCH: denies: headache MS/SKIN/LYMPH: none - PAST HX Lung Disease: COPD Other History: other (depression) Allergies/Adverse Reactions: Allergies Allergy/AdvReac Type Severity Reaction Status Date / Time No Known Allergies Allergy Verified 01/13/17 04:26 Home Medications: Ambulatory Orders Medication Instructions Recorded Fluoxetine HCl 40 mg PO 2 capsules daily av 11/03/15 Aspirin EC [Ecotrin] 81 mg PO DAILY tablet. 05/19/16 Montelukast Sodium [Singulair] 10 mg PO DAILY tablet 05/19/16 Amitriptyline HCl [Elavil] 50 mg PO HS tablet 05/26/16 - SOCIAL HX Smoking History: cigarettes - FAMILY HX Family History: denies: none - VITAL SIGNS Vital Signs: Vital Signs Temp Pulse Resp BP Pulse Ox 98.0 F 120 H 24 129/78 100 01/13/17 04:05 01/13/17 04:05 01/13/17 04:05 01/13/17 04:05 01/13/17 04:05 - REVIEWED ASSESSMENTS Nursing Assessment Reviewed: Yes Vitals Reviewed: Yes ED Results Lab/Radiology - Lab Results Lab Results: Lab Results 01/13/17 01/13/17 04:28 04:28 WBC 4.50 K/ul K/ul (4.00-12.00) RBC 3.95 M/ul M/ul (3.90-5.20) Hgb 12.4 g/dL g/dL (12.0-16.0) Hct 38.8 % % (34.5-46.5) MCV 98.2 fl fl (80.0-100.0) MCH 31.3 pg pg (28.0-34.0) MCHC 31.8 g/dL g/dL (30.0-36.0) RDW 12.4 % % (11.3-14.3) Plt Count 150 K/mm3 K/mm3 (130-400) Neut % (Auto) 88.4 % H % (39.0-79.0) Lymph % (Auto) 8.4 % L % (16.0-50.0) [place] % (Auto) 1.6 % % (0.0-11.0) Eos % (Auto) 0.4 % % (0.0-6.8) Baso % (Auto) 0.5 (0.0-1.5) Neut # (Auto) 4.0 # k/uL # k/uL (1.4-7.7) Lymph # (Auto) 0.4 # k/uL L # k/uL (0.6-4.0) [place] # (Auto) 0.1 # k/uL # k/uL (0.0-0.9) Eos # (Auto) 0.0 # k/uL # k/uL (0.0-0.6) Baso # (Auto) 0.0 # k/uL # k/uL (0.0-0.5) Reactive Lymphs % 0.7 % % (0.0-5.0) Reactive Lymphs # 0.0 # k/uL # k/uL (0.0-0.8) Sodium 143 mmol/L mmol/L (136-145) Potassium 4.7 mmol/L mmol/L (3.5-5.0) Chloride 103 mmol/L mmol/L (98-110) Carbon Dioxide 38 mmol/L H mmol/L (20-32) BUN 16 mg/dL mg/dL (10-26) Creatinine 0.5 mg/dL mg/dL (0.4-1.5) Estimated Creat Clear 105 Est GFR ( Amer) > 60 (60 - ) Est GFR (Non-Af Amer) > 60 (60 - ) Glucose 149 mg/dL H mg/dL (70-99) Calcium 9.5 mg/dL mg/dL (8.5-10.5) Total Bilirubin 0.5 mg/dL mg/dL (0.2-1.2) AST 22 U/L U/L (0-41) ALT 21 U/L U/L (0-45) Alkaline Phosphatase 82 U/L U/L (46-116) Total Protein 6.7 g/dL g/dL (6.0-8.5) Albumin 4.4 g/dL g/dL (3.0-5.5) - Orders Orders: ED Orders Category Date Time Status CHEST 2 VIEW [CHEST P.A.&LAT 2 VIEWS] [RAD] Stat Exams 01/13/17 04:23 Taken CBC/PLATELET/DIFF Routine Lab 01/13/17 04:28 Completed CMP Routine Lab 01/13/17 04:28 Completed methylPREDNISolone SOD SUCC [Solu-MEDROL] Med 01/13/17 05:22 Once 62.5 mg IVP NOW ONE EKG WITH COMPARISON Stat Ther 01/13/17 04:10 Ordered Dyspnea Physical Exam - EXAM General Appearance: mild distress EENT: eye inspection normal, BAILEE Respiratory: no pain on inspiration, speaks full sentences, wheezes (expiratory) , other (course, productive cough) CVS: reg. 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 Continue your prednisone. Use your albuterol neb/inhaler every 2 hours as needed for wheezing, cough and SOB. Follow up with Dr Salcedo in 2-3 days. Home Medications: Ambulatory Orders Fluoxetine HCl 40 mg PO 2 capsules daily av 11/03/15 Aspirin EC [Ecotrin] 81 mg PO DAILY tablet. 05/19/16 Montelukast Sodium [Singulair] 10 mg PO DAILY tablet 05/19/16 Amitriptyline HCl [Elavil] 50 mg PO HS tablet 05/26/16 Condition: Stable Disposition: HOME, SELF-CARE Decision to Admit: NO Decision Time: 06:00
[2017-01-13] MEDS ORDERED: cefTRIAXone SODIUM 1 GM in 0.9 % SODIUM CHLORIDE 50 ML IV ONE (05:28)
--- NOTE | 2017-01-13 06:53 | Diagnostic Imaging Report ---
STEFANIE SANTIZO (KAY) - ER [facility] [address] [facility].[address] [address] Report Submission Date: Jan 13, 2017 5:02:45 AM CDT Patient Study Name: ROSSY TODD Date: Jan 13, 2017 4:37:18 AM CDT Modality Type: CR Gender: F Description: CHEST : 54 Institution: [facility] Physician: STEFANIE SANTIZO (KAY) - ER Chest 2 views History: Cough Findings: The lungs are hyperinflated without pneumonia or pleural effusion. A severe mid thoracic compression deformity is present without change since the prior exam. A healed left rib fracture is noted. Heart size is normal. Impression: Emphysema, thoracic compression deformity, and healed left rib fracture. Electronically signed on Jan 13, 2017 5:02:45 AM CDT by: Lenin CHAN
[2017-01-13 07:32] VITALS: BP 122/65
== END 2017-01-13 07:00 | disposition home or self-care (01) ==
LOC: ED 04:03
DX: J44.1 Chronic obstructive pulmonary disease with (acute) exacerbation (principal)
CPT/HCPCS: 71020; 80053; 85025; J0696; J2930; 96374; 96375; 99283

== ENCOUNTER 2018-05-11 12:12 | Outpatient (CLI) | payer MEDICARE, OTHER ==
--- NOTE | 2018-05-11 14:27 | Diagnostic Imaging Report ---
TIM MEDEIROS [facility] [address] [facility] [address] 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 History: Evaluate lung arthur. copd, WORSENING SOB X'S 2 DAYS (Hx) Comparison exam: None provided. Findings: PA and lateral views of the chest demonstrates a normal cardiac and mediastinal silhouette. Tortuous aorta with vascular calcifications. Chronic interstitial changes. Parenchymal haziness at the left lung base. Possible nodularity involving the right lower lung. Old appearing left lower lateral rib fracture. Impression: Chronic interstitial changes with likely left base infiltrate. Right lower lung nodular density. Correlation with older studies recommended if become available. If none available 2 document stability, consider obtaining CT chest to further evaluate. Electronically signed on May 11, 2018 1:20:24 PM CREATIVE/ART DIRECTOR by: Fredy CHAN
== END 2018-05-11 12:17 | disposition home or self-care (01) ==
LOC: RAD 12:12
PROVIDERS: ATTEND Family Medicine
DX: M79.644 Pain in right finger(s) (principal)
CPT/HCPCS: 71046